=== PATIENT | female | born 1990 | race Caucasian/White ===

== ENCOUNTER → 2016-11-25 | Outpatient (CLI) | payer BC ==
[~2016-11-25] MED LIST: MEDLIST; PRED20TA PO; bactrim; yaz
== END | disposition home or self-care (01) ==
LOC: C.PAPS 14:01
PROVIDERS: ATTEND Obstetrics & Gynecology
DX: Z01.419 Encounter for gynecological examination (general) (routine) without abnormal findings (principal)

== ENCOUNTER 2023-10-30 19:43 | Inpatient (IN) ==
[2023-10-30] MEDS ORDERED: OXYTOCIN 30 UNITS/NSS 30 UNITS/500 ML BAG IV PRN ×2 (20:09→20:34)
[2023-10-30] MEDS ORDERED: LIDOCAINE 1% LOCAL 20 ML VIAL INFIL PRN (20:09)
[2023-10-30] MEDS ORDERED: LACTATED RINGER'S 1,000 ML IV PRN (20:09)
--- NOTE | 2023-10-30 20:29 | Delivery Summary ---
Vaginal Delivery Summary Date of Service October 30, 2023 Vaginal Delivery Summary Covering from [facility] physician Delivery Summary: Patient was placed in the dorsal lithotomy position. She was prepped and draped in the usual sterile fashion. Upon maternal pushing the head was delivered at raumatically followed by the anterior shoulders, posterior shoulders then the remainder of the infants body. The was immediately placed on mother's abdomen, dried and stimulated. Delayed cord clamping for 60 seconds was performed. The infants mouth and nose were bulb suctioned by nursing staff. A female was delivered at 2009, weight pending with APGARS of 8 at 1 minute and 9 at 5 minutes. The was handed off to the awaiting nursing staff. Cord blood gases were not obtained. The placenta delivered intact with three vessel cord at 2012. Placenta was sent to pathology. Thirty units of Pitocin were added to the IV fluid and allowed to run freely. Uterine massage was performed until uterus was deemed firm. Upon inspection of the perineum, second degree laceration was noted, injected with local, which was repaired with 3-0 vicryl in the usual fashion. Upon re-inspection the patient was hemostatic. Uterus again massaged and found to be firm. Needle and sponge counts were correct. Patient was stable and allowed to recover in L&D room. Infant was stable and remained in room with mother in the labor and delivery unit. EBL 300 mls
[2023-10-30] MEDS ORDERED: HYDROCORTISONE ACETATE 25 MG SUPP PR PRN (20:34)
[2023-10-30] MEDS ORDERED: DIPHTHERIA/TETANUS/PERTUSSIS Vaccine (Tdap, Age 7+yrs) 0.5mL SYR/VL IM ONE (20:34)
[2023-10-30] MEDS ORDERED: IBUPROFEN 600 MG TAB PO PRN (20:34)
[2023-10-30] MEDS ORDERED: bisacodyL 10 MG SUPP PR PRN (20:34)
[2023-10-30] MEDS ORDERED: OXYTOCIN 10 UNITS/ML 10ML VIAL IM ONE (20:34)
[2023-10-30] MEDS ORDERED: BENZOCAINE 20% SPRY 85 APPLN/85 GM CAN EXT PRN (20:34)
[2023-10-30] MEDS ORDERED: ACETAMINOPHEN 325 MG TAB PO PRN (20:34)
--- NOTE | 2023-10-30 20:37 | History & Physical Report ---
Date of Service October 30, 2023 Assessment & Plan (1) Supervision of normal intrauterine in primigravida: Plan: -On my arrival, baby and placenta had been delivered by [facility] provider programmer operator numerical control, see delivery note for details Admission and Anticipated Discharge Date Admission Date: October 30, 2023 History of Present Illness Chief Complaint: Contractions Primary Care Provider: Sherry Pugh 33 yo at 38 5/7 wga presented w/ c/o contractions. Around 430pm, was 5-15 min and rec to continue monitoring. At 630, she called triage again noting they were q2-6 for the last hour and recommended to present for eval. She notes [place] off the highway to get off the hospital, ctx drastically worsened and underwent srom on arrival Allergies Allergy/AdvReac Type Severity Reaction Status Date / Time No Known Allergies Allergy Verified 10/30/23 20:34 Home Medications Medication Instructions Recorded Confirmed Type loratadine [Claritin] PO 04/11/21 10/26/23 History cholecalciferol (vitamin D3) 25 25 mcg PO DAILY 09/03/22 10/26/23 History mcg (1,000 unit) capsule folic acid 20 mg capsule 20 mg PO DAILY 09/03/22 10/26/23 History prenat.vits,laney,dnn-kfzv-jcfjl 1 tab PO DAILY 09/03/22 10/26/23 History Patient History Medical History (Updated 03/23/23 @ 11:04 by Diandra Holbrook) Missed Surgical History (Updated 04/09/20 @ 13:41 by Shawnee Millan MD, FACOG) H/O myringoplasty History of myringotomy H/O wisdom tooth extraction S/P adenoidectomy Family History (Updated 04/09/20 @ 13:42 by Shawnee Millan MD, FACOG) Father Hypertension Grandmother (Maternal) Colorectal cancer Mother Anemia Sister Nephrolithiasis Social History (Updated 03/23/23 @ 10:09 by Diandra Holbrook) Smoking Status: Never smoker Do You Dip or Chew Tobacco: No; Hx Alcohol Use: Yes Hx Substance Use: No marital status: marital status details: Mayur (30) [phone] Current Living Situation: Spouse Current Living Situation Comment: lkives wsith spouse, 2 cats, spouse to change litter, current occupational status: employed 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
[2023-10-30 21:15] LABS: Hematocrit (blood only) 40.9 % (37.0-47.0); Hemoglobin 13.5 g/dl (12.0-16.0); Mean Corpuscular Hemoglobin 28.5 pg (25.0-34.0); Mean Corpuscular Volume 86.3 fL (80.0-100.0); Mean Platelet Volume 10.4 fL (9.4-12.4); Platelet Count 252 K/uL (130-400); RDW Coefficient of Variation 13.9 % (11.5-14.5); RDW Standard Deviation 43.4 fL (36.4-46.3); Red Blood Count 4.74 M/uL (4.20-5.40); White Blood Count 9.98 K/ul (4.8-10.8)
[2023-10-30] MEDS: DOCUSATE SODIUM 100 MG CAP PO SCH (21:16)
--- NOTE | 2023-10-31 07:16 | Obstetrical Progress Note ---
Date of Service October 31, 2023 Assessment & Plan (1) Encounter for care and examination after delivery: 33 yo PP1 from precip , doing well -Meeting all pp milestones -Rh+/rubella immune/ -f/u 6 weeks for appt, continue routine care Subjective Ambulation: ambulating normally Voiding: no voiding problems Passing Gas:: Yes Diet Tolerance:: regular diet Lochia:: Small Feeding Type:: breast feeding Pain well managed with medication Review of Systems Denies fevers, chills, n/v, HENDRICKS, CP, SOB Physical Exam Constitutional WD/WN, vitals as above no acute distress Respiratory normal respiratory effort, lungs clear to auscultation Cardiovascular RRR, no murmur, no edema Gastrointestinal (Abdomen) Percussion/Palpation: abdomen soft; abdomen nontender fundus firm at umbilicus and NT Musculoskeletal BLE symmetric, nonerythematous, nontender Results & Data Vital Signs (Past 12 Hours) Vital Signs Temp Pulse Pulse Resp BP BP Pulse Ox 10/31/23 03:12 97.7 F 62 18 107/68 98 10/30/23 23:15 98.4 F 84 20 148/98 H 98 10/30/23 22:22 81 10/30/23 22:22 152/99 H 10/30/23 22:20 18 10/30/23 22:06 75 10/30/23 22:06 140/85 10/30/23 21:51 75 10/30/23 21:51 137/81 10/30/23 21:50 18 10/30/23 21:36 76 10/30/23 21:36 142/91 H 10/30/23 21:22 77 10/30/23 21:22 136/85 10/30/23 21:20 18 10/30/23 21:06 73 10/30/23 21:06 130/71 10/30/23 21:05 18 10/30/23 20:52 77 10/30/23 20:52 147/76 H 10/30/23 20:50 18 10/30/23 20:37 78 10/30/23 20:37 146/97 H 10/30/23 20:35 18 10/30/23 20:35 97.9 F 20 10/30/23 20:22 80 10/30/23 20:22 130/65 10/30/23 20:20 18 10/30/23 20:08 77 148/81 H O2 Del Method 10/31/23 03:12 Room Air 10/30/23 23:15 Room Air 10/30/23 22:22 10/30/23 22:22 10/30/23 22:20 10/30/23 22:06 10/30/23 22:06 10/30/23 21:51 10/30/23 21:51 10/30/23 21:50 10/30/23 21:36 10/30/23 21:36 10/30/23 21:22 10/30/23 21:22 10/30/23 21:20 10/30/23 21:06 10/30/23 21:06 10/30/23 21:05 10/30/23 20:52 10/30/23 20:52 10/30/23 20:50 10/30/23 20:37 10/30/23 20:37 10/30/23 20:35 10/30/23 20:35 Room Air 10/30/23 20:22 10/30/23 20:22 10/30/23 20:20 10/30/23 20:08
[2023-10-31] MEDS: PRENATAL VITAMIN 1 TAB PO SCH (08:01)
[2023-10-31] MEDS: FERROUS SULFATE 325 MG TAB PO SCH (08:01)
[2023-10-31] MEDS: DOCUSATE SODIUM 100 MG CAP PO SCH ×2 (08:01→20:56)
[2023-10-31] MEDS ORDERED: bisacodyL 5 MG TABEC PO SCH (20:00)
[2023-11-01] MEDS: FERROUS SULFATE 325 MG TAB PO SCH (07:58)
[2023-11-01] MEDS: DOCUSATE SODIUM 100 MG CAP PO SCH (07:58)
[2023-11-01] MEDS: PRENATAL VITAMIN 1 TAB PO SCH (07:58)
--- NOTE | 2023-11-01 08:10 | Obstetrical Progress Note ---
Date of Service November 01, 2023 Assessment & Plan (1) Encounter for care and examination after delivery: 33 yo PP2 from precip , doing well -Meeting all pp milestones. Few mild bps but asymptomatic -Rh+/rubella immune/ -f/u 6 weeks for appt, will get labs for bps but if ok, still ok to go home. WIll get bp check at [facility] office as she lives a distance Subjective Ambulation: ambulating normally Voiding: no voiding problems Passing Gas:: Yes Diet Tolerance:: regular diet Lochia:: Small Feeding Type:: breast feeding Pain well managed with medication Review of Systems Denies fevers, chills, n/v, HENDRICKS, CP, SOB Physical Exam Constitutional WD/WN, vitals as above no acute distress Respiratory normal respiratory effort, lungs clear to auscultation Cardiovascular RRR, no murmur, no edema Gastrointestinal (Abdomen) Percussion/Palpation: abdomen soft; abdomen nontender fundus firm at umbilicus and NT Musculoskeletal BLE symmetric, nonerythematous, nontender Results & Data Vital Signs (Past 12 Hours) Vital Signs Temp Pulse Resp BP Pulse Ox O2 Del Method 11/01/23 07:25 98.2 F 89 18 134/86 96 Room Air 11/01/23 00:57 98.2 F 82 20 134/87 96 Room Air 10/31/23 20:15 98.4 F 90 20 125/85 96 Room Air
[2023-11-01 08:46] LABS: Hematocrit (blood only) 36.3 % (37.0-47.0); Hemoglobin 12.3 g/dl (12.0-16.0); Mean Corpuscular Hemoglobin 28.8 pg (25.0-34.0); Mean Corpuscular Hgb Conc 33.9 g/dL (32.0-36.0); Mean Platelet Volume 9.8 fL (9.4-12.4); Platelet Count 234 K/uL (130-400); RDW Coefficient of Variation 14.2 % (11.5-14.5); RDW Standard Deviation 43.7 fL (36.4-46.3); Red Blood Count 4.27 M/uL (4.20-5.40); White Blood Count 11.05 K/ul (4.8-10.8)
[2023-11-01 09:02] LABS: Albumin Level 3.3 gm/dl (3.4-5.0); BUN Creatinine Ratio 13.8 (10-20); Bilirubin,Total 0.4 mg/dl (0.2-1.0); Calcium 8.4 mg/dl (8.6-10.3); Creatinine Clr Calc Pharmacy 178.3 ml/min; Est GFR (African American) 137.1 ml/min; Est GFR (Non-African American) 118.3 ml/min; Globulin 3.3 gm/dl (2.5-4.0); Potassium 3.8 mmol/L (3.5-5.1); Total Protein 6.6 gm/dl (6.0-8.3)
== END 2023-11-01 12:00 | disposition home or self-care (01) | DRG 807 ==
LOC: OPB 19:43 → 4S1 19:45 → 4E2 22:40

== ENCOUNTER 2024-03-16 07:08 | Observation (INO) ==
--- NOTE | 2024-03-10 09:26 | Anesthesiology Consultation ---
Date of Service March 10, 2024 Assessment & Plan Chart Review Chart Review: Acceptable Risk for Surgery and Patient NOT seen in Pre Admission Testing Consults Requested none History Surgery Operation Date: 03/16/24 08:40 Proposed Procedures p Laparoscopic Cholecystectomy with Cholangiogram, Possible Open - Gaudencio Martel MD, FACS Height/Weight Height: 5 ft 5 in Weight: 122.47 kg Allergies Allergy/AdvReac Type Severity Reaction Status Date / Time No Known Allergies Allergy Verified 03/10/24 07:46 Medications Home Medications Medication Instructions Recorded Confirmed Last Taken fluoxetine 20 mg capsule 20 mg PO QAM 02/17/24 03/10/24 Unknown hydroxyzine pamoate 25 mg capsule 25 mg PO BID PRN Anxiety 02/17/24 03/10/24 Un known (Vistaril) multivitamin 1 tab PO QAM 02/17/24 03/10/24 Unknown pantoprazole 40 mg tablet,delayed 40 mg PO QPM 02/17/24 03/10/24 Unknown release cholecalciferol (vitamin D3) 125 125 mcg PO QAM 03/10/24 03/10/24 Unknown mcg (5,000 unit) tablet (Vitamin D3) drospirenone 3 mg-ethinyl 1 tab PO QAM 03/10/24 03/10/24 Unknown estradiol 0.02 mg tablet loratadine 10 mg capsule 10 mg PO QAM 03/10/24 03/10/24 Unknown Past Medical History Medical History Anxiety GERD (gastroesophageal reflux disease) History of anemia no current issues-through teenage years due to heavy menses Missed hx Past Family History Family History Father Hypertension Grandmother (Maternal) Colorectal cancer Mother Anemia Sister Nephrolithiasis Grandmother (Paternal) Colorectal cancer Diabetes Past Surgical History Surgical History H/O myringoplasty History of myringotomy H/O wisdom tooth extraction S/P adenoidectomy Social History Smoking Status: Never smoker Do You Dip or Chew Tobacco: No Hx Alcohol Use: Yes (none since having baby) Alcohol type: wine and hard liquor Hx Substance Use: No substance use type: does not use Testing Electrocardiogram Date: 03/01/24 Normal sinus rhythm with sinus arrhythmia, rate 75 bpm Normal ECG No previous ECGs available Confirmed by Edgardo Coppola ([id number]) on 03/05/2024 7:18:09 PM Chest X-Ray Date: 03/01/24 Findings: + NAD
[~2024-03-16 07:08] MED LIST changes: +ACETAMINOPHEN 1000 MG/100 ML IV IV ONE; -MEDLIST; -PRED20TA PO; -bactrim; -yaz
[2024-03-16] MEDS ORDERED: LIDOCAINE 2% 2 ML VIAL/AMP(20MG/ML) INFIL ONE (07:28)
[2024-03-16] MEDS ORDERED: ROCURONIUM BROMIDE 10 MG/ML 5 ML VIAL IV ONE (07:28)
[2024-03-16] MEDS ORDERED: DEXAMETHASONE SOD INJ 4 MG/ML VIAL ONE (07:28)
[2024-03-16] MEDS ORDERED: fentaNYL citrate PF 100 MCG/2 ML VIAL ONE ×2 (07:28→10:19)
[2024-03-16] MEDS ORDERED: PROPOFOL IV EMULSION 10 MG/ML 20 ML VIAL IV ONE (07:28)
[2024-03-16] MEDS ORDERED: MIDAZOLAM HCL 1 MG/ML 2ML VIAL ONE (07:28)
[2024-03-16] MEDS ORDERED: ONDANSETRON INJ 2 MG/ML 2 ML VIAL ONE (07:28)
[2024-03-16] MEDS: LR 15ML/HR IV SCH (08:19)
--- NOTE | 2024-03-16 08:42 | History & Physical Bridge Note ---
Date of Service March 16, 2024 History & Physical Bridge Note I have examined the patient, reviewed the History & Physical and in the interval since the performance of the History & Physical I have noted the following changes of clinical significance: no changes noted SO at bedside all question answered
[2024-03-16] MEDS ORDERED: PROMETHAZINE HCL 6.25 MG in SODIUM CHLORIDE 0.9% 50 ML IV PRN (08:56)
[2024-03-16] MEDS ORDERED: ONDANSETRON INJ 2 MG/ML 2 ML VIAL IV PRN ×2 (08:56→09:29)
[2024-03-16] MEDS ORDERED: ATROPINE SULFATE 0.1 MG/ML 10ML SYR IV PRN (08:56)
[2024-03-16] MEDS: SCOPOLAMINE 1 MG/72 HR TDSY PATCH TD ONE ×2 (08:56→09:04)
[2024-03-16] MEDS ORDERED: fentaNYL citrate PF 100 MCG/2 ML VIAL IV PRN (08:56)
[2024-03-16] MEDS ORDERED: ePHEDrine sulfate 50 MG/ML AMP IV PRN (08:56)
[2024-03-16] MEDS ORDERED: MoRPHine SULFATE 4 MG/ML 1 ML CARP\\VIAL IV PRN (09:29)
[2024-03-16] MEDS ORDERED: oxyCODONE/ACETAMINOPHEN 5mg/325mg TAB PO PRN ×2 (09:29)
[2024-03-16] MEDS: GLUCAGON FOR INJ 1 MG VIAL ONE (09:46)
[2024-03-16] MEDS ORDERED: KETOROLAC 30 MG/ML VIAL ONE (09:48)
[2024-03-16] MEDS ORDERED: SUGAMMADEX SODIUM 200 MG/2 ML VIAL IV ONE (09:48)
[2024-03-16] MEDS: IOVERSOL 50ml INSTIL PRN (10:06)
--- NOTE | 2024-03-16 10:11 | Fluoroscopy Report ---
[place] cholangiogram OR CLINICAL HISTORY: LAP JERONIMO TECHNIQUE: 5 views were obtained with the C-arm in the OR with the above procedure. Total fluoroscopy time was 4 seconds. Radiation dose was 1.54 mGy. Comparison: Comparison is made to CT abdomen pelvis 03/01/2024 FINDINGS/IMPRESSION: Intraoperative images were obtained of cholangiogram with laparoscopic cholecyst ectomy. Biliary tree is unremarkable. Please correlate with intraoperative fluoroscopy and operative report. ACT 112: Negative or not required by law. Electronically signed by: Rio Chanel M.D. 03/16/2024 10:09 AM
[2024-03-16] MEDS: LIDOCAINE 1%/EPINEPHRINE 1:100,000 20 ML VIAL ONE (10:21)
--- NOTE | 2024-03-16 10:21 | Post Operative Brief Note ---
Immediate Post Op Note v1 Date of Surgery March 16, 2024 Pre & Post Diagnosis Operation Date: 03/16/24 08:40 Pre-Op Diagnosis: Acute cholecystitis, cholelithiasis Post-Op Diagnosis: Acute cholecystitis, cholelithiasis I identified the patient and participated in the time-out.: Yes Procedure Operation Date: 03/16/24 08:40 Actual Procedures p Laparoscopic Cholecystectomy with Cholangiogram(Not Applicable) - Gauedncio Martel MD, FACS Surgeon Gaudencio Martel MD, FACS Research Aide Demario BASURTO Estimated Blood Loss 10 Findings Consistent with Post-Op Diagnosis Drains Ronnie-Kwok Drain
--- NOTE | 2024-03-16 10:42 | Operative Report ---
PG Post Operative Report Pre & Post Diagnosis Operation Date: 03/16/24 08:40 Pre-Op Diagnosis: Acute cholecystitis, cholelithiasis Post-Op Diagnosis: Acute cholecystitis, cholelithiasis Choledocholithiasis I identified the patient and participated in the time-out.: Yes Procedure Operation Date: 03/16/24 08:40 Actual Procedures p Laparoscopic Cholecystectomy with Cholangiogram(Not Applicable) - Gaudencio Martel MD, FACS The patient was brought into the operating room theater supine position general endotracheal anesthesia the abdomen was prepped Betadine solution properly draped a timeout was had patient identified we made a small incision supraumbilically sufficient enough to accommodate a Veress needle followed by 5 mm trocar once the pressure was a 10 mmHg followed by the scope point of entry specter no injury identified visualized the right upper quadrant gallbladder was could be seen adhesions to the gallbladder easily appreciated near the fundus and direct visualization placed a 5 mm epigastric and two 5 mm subcostal ports with preemptive local analgesic the right upper quadrant lateral trocar site the grasper was used to elevate the fundus gallbladder and we have mostly blunt dissection some sharp dissection we took up to significant adhesions to the gallbladder somewhat find some more more fibrinous but the gallbladder was extremely long we need to choke up on it a few times to elevated out of the subhepatic area finally we worked our way down to the neck identified a significant amount of adhesions of the duodenum down to the yrn hepatis area we then freed this all out make careful to avoid any injury to the duodenum we then more traction was placed on the gallbladder we worked our way down to the neck dissected out the cystic duct which we initially appreciate we was well aware and away from the common bile duct small clip in the cystic duct was made as a takeoff of small opening cystic duct was made a #4 urethral catheter transversing the abdominal wall was positioned in the cystic duct x-rays was taken which showed a very long corkscrew cystic duct common bile duct contrast would not go down into the duodenum there was a filling defect in the distal common bile duct this was consistent with a stone we at this point gave the patient some glucagon flushed out the system is much as possible normal saline solution we took another contrast study the common bile duct and the stone persisted at this point there was no way we could remove the stone that measured approximately 3 mm or so in size at this point we choked on the cystic duct since he stated was quite long were well aware and away from the common bile duct we tripped and clinically divided then the artery anterior and posterior branches were doubly clipped proximal once distally and divided the gallbladder was taken out in antegrade fashion using electrocautery few bleeders from the gallbladder fossa was cauterized the gallbladder was placed in an Endopouch and taken out intact through the epigastric port opening the gallbladder patient had significant amount of probably 2 to 3 mm stones similar to what we had visions i n the common bile duct the subhepatic suprahepatic area was then checked with stasis appears satisfactory at this point I elected to drain the subhepatic area with a Garfield drain which was brought in through the epigastric area taken out through the right upper quadrant lateral trocar site prior to doing that we had placed the camera in the lateral right upper quadrant trocar site to visualize her initial entry to the abdomen and no adhesion to the anterior abdominal wall was appreciated Cholangiocath was taken out to the black ezio on her right upper quadrant lateral side touches skin edges 2-0 silk placed subhepatic laying wounds were closed with 2-0 Vicryl Steri-Strips applied procedure was tolerated well by the patient estimated blood loss 10 cc Addendum Shira BASURTO was present throughout the procedure and helped the retraction exposure wound closure Addendum the patient will need to be transferred to [facility] for an ERCP since we have no ERCP facility anymore about that the [facility] Surgeon Gaudencio Martel MD, FACS Paper Goods Machine Set Up Operator Demario BASURTO Estimated Blood Loss 10 Findings Consistent with Post-Op Diagnosis Chronic cholecystitis cholelithiasis Choledocholithiasis Specimens Gallbladder and stone Drains 19 Garfield subhepatic Indications Chronic cholecystitis cholelithiasis Description of Procedure merda I attest to the content of the Intraoperative Record and any orders documented t herein. Any exceptions are noted below.
--- NOTE | 2024-03-16 10:49 | Discharge Summary ---
Date of Service March 16, 2024 Principal Diagnosis s/p laparoscopic cholecystectomy choledocholithiasis Discharge Exam awake, no distress Respiratory normal respiratory effort Gastrointestinal (Abdomen) Inspection/Auscultation: + abdominal surgical incision (steri strips in place) Percussion/Palpation: + abdomen tender (expected shanae incisional discomfort) and abdomen soft PHILLIP drain in place Discharge Data Allergies Allergy/AdvReac Type Severity Reaction Status Date / Time No Known Allergies Allergy Verified 03/16/24 07:39 Procedures Performed Operation Date: 03/16/24 08:40 Actual Procedures p Laparoscopic Cholecystectomy with Cholangiogram(Not Applicable) - Gaudencio Martel MD, FACS Ordered Studies 03/16/24 [place] cholangiogram OR Routine Hospital Course (1) S/P laparoscopic cholecystectomy: This is a 33yF who presented to the [facility] on 03/16/24 for an elective laparoscopic cholecystectomy with Dr. Martel. Intraop a routine cholangiogram was obtained that revealed filling defects in the common bile duct. The patient tolerated the procedure well and was left with a surgical drain in place. She was admitted to the hospital and kept NPO with IVF. Unfortunately, we do not offer ERCP services at this time. We connected with the transfer center who helped set-up transfer to [facility] where she will be accepted and GI to perform ERCP at their hospital. She should keep her drain until she can follow up with Dr. Martel in the office next week. The patient will be transferred when a bed becomes available. Addendum: Patient is refusing transfer to [facility], the transfer center is working on getting her transferred to [facility]. (2) Choledocholithiasis: Total Time Total Time Spent Total Time Spent (In Minutes): 15 Discharge Plan Discharge Items Patient Disposition: Transfer Acute Care Hospital Reason For Visit: S/P LAP JERONIMO Discharge Diagnosis: Laparoscopic Cholecystectomy with Cholangiogram Activity: As commented below Lifting: No more than 10 pounds Bathing Comment: you can shower tomorrow. No pools or bath for 2 weeks Exercise/Sports: Wait until after follow-up appointment Driving/Machine Use: no driving while on narcotics for pain Non-emergency contact: Surgeon Call non-emergency contact if: you have any medication questions, your pain is not controlled, you have a fever, your temperature is above 101.5, your wound has increased redness, your wound has increased drainage and your wound pain has increased Follow-up/Referrals: Gaudencio Martel MD, FACS [Surgeon] - (call office for a follow up in 1 week for drain removal ) Sherry Pugh M.D. [Primary Care Provider] - Diet: Nothing by Mouth Addtl Attending Provider Instructions: You will have small white bandages on underneath that are over your incision. You may shower with these on. They will tend to fall off on their own in a 7-10 days. you have a PHILLIP drain, please care for this as you have been shown. Keep a log of your output and bring it with you to your follow up appointment. Follow up with Dr. Martel next week Pending Studies at Discharge: Yes Studies:: surgical pathology Stand-Alone Forms: My [facility] Skilled Items Patient informed of condition?: Yes DNR: No Discharge Level of Care: Other Communicable Disease: No Discharge Prognosis: Stable Lines: Peripheral IV Urinary Catheter: No Medications and DC Order Prescriptions: New oxycodone 5 mg tablet 5 - 10 mg PO .[id number] MDD no more than 6 tabs in 24hours PRN (Reason: pain) Qty: 15 0RF Continued pantoprazole [Protonix] 40 mg tablet,delayed release (DR/EC) 40 mg PO QPM Patient Comments: before lunch fluoxetine [Prozac] 20 mg capsule 20 mg PO QAM hydroxyzine pamoate [Vistaril] 25 mg capsule 25 mg PO BID PRN (Reason: Anxiety) multivitamin Tablet 1 tab PO QAM cholecalciferol (vitamin D3) [Vitamin D3] 125 mcg (5,000 unit) Tablet 125 mcg PO QAM Claritin Liqui-Gel 10 mg Capsule 10 mg PO QAM drospirenone-ethinyl estradiol 3-0.02 mg tablet 1 tab PO QAM Rx Instructions: Take one pill everyday at the same time Discharge Orders: Discharge Order (Routine); Ordered 03/16/24 Ordered By: Heather Trinidad Admission Data Admit Date/Time: 03/16/24 10:48 Attending Provider: Gaudencio Martel Admit Provider: Gaudencio Martel Primary Care Provider: Sherry Pugh Coding Level of Care Code 02444 INP/OBS DISCH >30 MIN Diagnoses S/P laparoscopic cholecystectomy Z90.49 Choledocholithiasis K80.50
--- NOTE | 2024-03-16 11:25 | Anesthesiology Progress Note ---
Date of Service March 16, 2024 Anesthesia Post Procedure Vital Signs Vital Signs: Temp Pulse Resp BP Pulse Ox O2 Del Method O2 Flow Rate 03/16/24 11:20 36.3 C L 82 19 117/72 96 Room Air 03/16/24 11:10 88 19 124/66 97 Room Air 03/16/24 11:00 99 H 20 111/68 95 Room Air 03/16/24 10:50 85 20 139/79 98 Oxymask 5 03/16/24 10:42 36.1 C L 91 H 20 129/102 H 93 Oxymask 5 03/16/24 07:42 37.1 C 90 18 146/94 H 97 Room Air Transfer of Care Handoff Completed per policy Notes Mental Status: alert / awake / arousable Patient Amnestic to Procedure: Yes Nausea / Vomiting: adequately controlled Pain: adequately controlled Airway Patency, RR, SpO2: stable & adequate BP & HR: stable & adequate Hydration State: stable & adequate Anesthetic Complications: no major complications apparent and Pt Satisfied with anesthetic care
[2024-03-16] MEDS: LACTATED RINGER'S 1,000 ML IV SCH (12:05)
[2024-03-16] MEDS: SODIUM CHLORIDE 0.9% 1,000 ML IV SCH (13:27)
--- NOTE | 2024-03-16 13:41 | Communication Note ---
Date of Service: March 16, [address] Millan at [facility] , they are willing to accept the patient however wanted it to be known there may be a 24-48 hour wait for an open bed, if she does not arrival tomorrow at an acceptable time or if she were to arrival over the weekend her ERCP procedure is not guaranteed to be done Wednesday or over the weekend but could possibly be pushed to Wednesday. Dr. Millan wanted me to inform the patient that If her LFTs and other lab work indicated an emergent procedure then she would need to get a percutaneous drainage. I made the patient and her aware of the above, and she is now requesting that she be transferred to [place] and is "Ok" with going there. Transfer paper work signed and in chart.Updated transfer center.
[2024-03-16] MEDS: MoRPHine SULFATE 2 MG/ML CARP IV PRN (14:27)
[2024-03-16 14:31] LABS: Albumin Globulin Ratio 1.1 (0.9-2); BUN Creatinine Ratio 16.4 (10-20); Bilirubin,Total 0.7 mg/dl (0.2-1.0); Creatinine Clr Calc Pharmacy 160.4 ml/min; Est GFR (African American) 135.8 ml/min; Est GFR (Non-African American) 117.1 ml/min; Globulin 3.5 gm/dl (2.5-4.0); Potassium 4.2 mmol/L (3.5-5.1); Total Protein 7.5 gm/dl (6.0-8.3)
[2024-03-16] MEDS ORDERED: CHECK SCOPOLAMINE PATCH PLACEMENT SCH (16:00)
[2024-03-16] MEDS ORDERED: ACETAMINOPHEN 325 MG TAB PO PRN (17:08)
[2024-03-17] MEDS ORDERED: FLUoxetine HCL 20 MG CAP PO SCH (09:00)
== END 2024-03-16 19:22 | disposition short-term general hospital (02) ==
LOC: ASU 07:08 → 3E 10:48 → INTOOBSV 10:48

== ENCOUNTER 2025-09-18 19:59 | Inpatient (IN) ==
[2025-09-18] MEDS ORDERED: CALCIUM CARBONATE 500 MG CHEWABLE TAB PO PRN (20:46)
[2025-09-18] MEDS ORDERED: LIDOCAINE 1% LOCAL 20 ML VIAL INFIL PRN (20:46)
--- NOTE | 2025-09-18 20:53 | History & Physical Report ---
Date of Service September 18, 2025 Assessment & Plan (1) Elevated blood pressure affecting , antepartum: Plan: Patient is a 35yo female who presents for recommended delivery after having elevated blood pressures. Continues to have mild range blood pressures in the hospital Meets criteria for gHTN - delivery recommended at this time Admission labs pending; will add on HELLP labs and repeat p/c ratio Cvx 3/60/2; recommended pitocin 2x2; patient initially hesitant; wants to walk for an hour and then if unchanged or contractions not picking up more states will be agreeable to starting pitocin Epidural PRN AROM when able Rh positive, rubella immune, GBS negative Presentation confirmed vertex on exam Anticipate Present on Admission?: Yes (2) Encounter for induction of labor: History of Present Illness Chief Complaint: Elevated BP Primary Care Provider: Sherry Pugh Patient is a 35yo female who presents for recommended delivery after having elevated blood pressures. Notes some swelling but denies other preeclampsia symptoms. +FM, reports mild intermittent contractions; denies LOF, VB. Allergies Allergy/AdvReac Type Severity Reaction Status Date / Time No Known Allergies Allergy Verified 09/18/25 14:50 Home Medications Medication Instructions Recorded Confirmed Type loratadine 10 mg capsule (Claritin 10 mg PO QAM 03/10/24 09/18/25 History Liqui-Gel) amoxicillin 875 mg tablet 875 mg BID 09/18/25 09/18/25 History vitamins-iron fumarate 65 tab 09/18/25 History mg iron-folic acid 1 mg tablet Patient History Medical History Varicella vaccination Choledocholithiasis High risk HPV infection Low grade squamous intraepithelial lesion (LGSIL) at risk for high grade squamous intraepithelial lesion (HGSIL) on cytologic smear of cervix Allergies Acne Anxiety GERD (gastroesophageal reflux disease) History of anemia Missed Surgical History S/P ERCP Hx laparoscopic cholecystectomy (03/16/24) H/O myringoplasty History of myringotomy H/O wisdom tooth extraction S/P adenoidectomy Family History Father Hypertension Grandmother (Maternal) No problems noted. Mother Anemia Sister Nephrolithiasis Grandmother (Paternal) Colorectal cancer Diabetes Grandfather (Maternal) Stroke Denies family history of Ovarian cancer Breast cancer Social History Smoking Status: Never smoker Second Hand Exposure: No; Do You Dip or Chew Tobacco: No; Hx Alcohol Use: Yes (none since having baby) Alcohol type: wine and hard liquor Alcohol Intake Frequency: Monthly or Less Hx Substance Use: No Preferred Language: Russian Communication Ability: Effective Energy Control Officer Required: No Beliefs That Will Affect Care: None marital status: marital status details: Mayur (30) [phone] Current Living Situation: Spouse and Family Current Living Situation Comment: house with , child, cats-spouse changing litter current occupational status: employed 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 How many Children do You have: 1 Other Information That Helps Us Care for You: No Feels Safe at Home: Yes Safety Concerns: Feels Safe At This Time Diet: regular during the past year weight has: remained stable Assistive Devices: None Review of Systems All systems reviewed & are unremarkable except as noted in HPI & below Physical Exam Constitutional: WD/WN, vitals as above healthy appearing Respiratory: normal respiratory effort Musculoskeletal: Lower extremity edema bilaterally-trace Psychiatric: Orientation: alert and oriented x 3 Genitourinary: Manual OB Exam: + cervical dilation 3 cm, + cervical effacement 60% and + station -2 OB Exam Monitor Tracing: + external FHT monitor used, + external uterine monitor used and + category I Results & Data Vital Signs (Past 12 Hours) Vital Signs Temp Pulse Resp BP 09/18/25 20:26 36.6 C 87 18 146/94 H 09/18/25 20:19 87 146/94 H Coding Level of Care Code None Diagnoses Elevated blood pressure affecting , antepartum O16.9 Encounter for induction of labor Z34.90
[2025-09-18 21:35] LABS: Hematocrit (blood only) 38.1 % (37.0-47.0); Hemoglobin 13.1 g/dL (12.0-16.0); Mean Corpuscular Hemoglobin 29.2 pg (25.0-34.0); Mean Corpuscular Volume 84.9 fL (80.0-100.0); Platelet Count 245 K/uL (130-400); RDW Standard Deviation 44.4 fL (36.4-46.3); Red Blood Count 4.49 M/uL (4.20-5.40); White Blood Count 14.27 K/ul (4.8-10.8)
[2025-09-18 21:53] LABS: Alanine Aminotransferase 9.0 U/L (7-52); Albumin Globulin Ratio 0.9 (0.9-2); Albumin Level 3.4 gm/dl (3.4-5.0); Alkaline Phosphatase 133.0 U/L (34-104); Anion Gap 10.0 (3-11); Bilirubin,Total 0.4 mg/dl (0.2-1.0); Blood Urea Nitrogen 9.0 mg/dl (6-23); Calcium 9.0 mg/dl (8.6-10.3); Carbon Dioxide 19.0 mmol/L (21-32); Chloride 107.0 mmol/L (98-107); Creatinine Clr Calc Pharmacy 210.8 ml/min; Globulin 3.9 gm/dl (2.5-4.0); Glucose 78.0 mg/dl (70-99(Fasting)); Potassium 4.0 mmol/L (3.5-5.1); Sodium 136.0 mmol/L (136-145); Total Protein 7.3 gm/dl (6.0-8.3); Uric Acid 5.6 mg/dl (2.6-7.2)
[2025-09-18 22:24] LABS: Hep B Surface Ag with confirm Negative (Negative); Treponema pallidum RflxConfirm Negative (Negative)
[2025-09-18] MEDS: LACTATED RINGER'S 1,000 ML IV PRN (22:55)
[2025-09-18] MEDS: OXYTOCIN 30 UNITS/NSS 30 UNITS/500 ML BAG IV PRN (22:55)
[2025-09-19] MEDS: OXYTOCIN 30 UNITS/NSS 30 UNITS/500 ML BAG IV PRN (01:30)
[2025-09-19] MEDS ORDERED: HYDROCORTISONE ACETATE 25 MG SUPP PR PRN (01:41)
[2025-09-19] MEDS ORDERED: IBUPROFEN 600 MG TAB PO PRN (01:41)
[2025-09-19] MEDS ORDERED: BENZOCAINE 20% SPRY 85 APPLN/85 GM CAN EXT PRN (01:41)
[2025-09-19] MEDS ORDERED: DIPHTHER/TETAN/PERTUS Vaccine (Tdap, Adol/Adult) 0.5mL IM ONE (01:41)
[2025-09-19] MEDS ORDERED: OXYTOCIN 30 UNITS/NSS 30 UNITS/500 ML BAG IV PRN (01:41)
--- NOTE | 2025-09-19 01:42 | Delivery Summary ---
Vaginal Delivery Summary Date of Service September 19, 2025 Vaginal Delivery Summary Pre-delivery diagnoses: IUP at 39 weeks 4 days, gestational HTN Post-delivery diagnoses: Same Procedure: Spontaneous vaginal delivery Surgeon: Estrellita Hernandes MD Complications: none Findings: Viable female . Apgars: 8/9. Weight pending, please see nursery records Estimated QBL: 55 cc Description of delivery: The patient progressed to complete without anesthesia. She then began to push. She spontaneously vaginally delivered a viable from the cephalic presentation. The head delivered, followed without delay by anterior shoulder, posterior shoulder, then the body. No nuchal. The baby was placed on mother's abdomen and a spontaneous cry was heard. Delayed cord clamping was employed, and the cord was doubly clamped and cut. Cord blood was obtained. The cord avulsed but with the patient pushing the placenta was delivered spontaneously intact, sent to pathology. The uterus and vagina were swept of clots and debris. IV pitocin was given. The uterus became firm. The cervix, vagina, and perineum were inspected. No lacerations requiring repair were noted. Excellent hemostasis was observed. The mother and baby are recovering in stable and good condition in the room. Sponge, needle and instrument counts were correct x 2. [facility] Vaginal Delivery Charge Delivery Type Details:
[2025-09-19] MEDS: ACETAMINOPHEN 325 MG TAB PO PRN (01:52)
[2025-09-19] MEDS ORDERED: LABETALOL HCL IV 5 MG/ML 20ML IV STA (02:08)
[2025-09-19] MEDS: LABETALOL HCL IV 5 MG/ML 20ML IV ONE (02:19)
[2025-09-19] MEDS: AMOXICILLIN 875 MG TAB PO SCH (08:55)
[2025-09-19] MEDS: PRENATAL VITAMIN 1 TAB PO SCH (08:55)
[2025-09-19] MEDS: DOCUSATE SODIUM 100 MG CAP PO SCH (08:56)
[2025-09-19 10:40] VITALS: TEMP 98.1
[2025-09-19] MEDS: NIFEdipine EXTENDED REL 30 MG TABCR PO STA (10:48)
[2025-09-19 11:44] VITALS: RESP 18
[2025-09-19 23:54] VITALS: BP 117/79; PULSE 91; O2SAT 98
--- NOTE | 2025-09-20 05:52 | Obstetrical Progress Note ---
Date of Service September 20, 2025 Assessment & Plan (1) care following vaginal delivery: Plan 35 yo post- day 1 s/p Feels well today. Vital signs stable Continue post- care Encourage ambulation and Pain controlled with ibuprofen Hgb stable Discharge home today, follow up with Dr. Hernandes in 6 weeks. BP check in office in 1 week, continue once daily Procardia 30mg XL Admission and Anticipated Discharge Date Admission Date: September 18, 2025 Supervising Physician Co-Signing Physician Notes Resident Physician Supervision Note: I interviewed and examined the patient. Discussed with Dr. Grijalva and agree with findings and plan as documented in the note. Any exceptions or clarifications are listed here: [ ] Documented By: Chinyere Nogueira MD, FACOG, MSCP Subjective 35 yo post- day 1 s/p Ambulation: ambulating normally Voiding: no voiding problems Passing Gas:: Yes Passing Stool:: yes Diet Tolerance:: regular diet Lochia:: Small Feeding Type:: bottle feeding Current Pain Level: 0/10 Resting comfortably this AM in NAD. Denies HENDRICKS, CP, SOB, N/V/D, LE pain/swelling. Review of Systems Review of Systems: All systems reviewed & are unremarkable except as noted in HPI & below Physical Exam Physical Exam: General: patient resting comfortably, NAD, non-toxic in appearance, AA&O x 4, answers questions appropriately. Skin: warm, dry, intact HEENT: NC/AT, anicteric sclera, conjunctiva without injection, moist mucus membranes. Heart: +S1/S2, regular, no m/r/g Lungs: equal air entry bilaterally, no rales/rhonchi/wheezes Abd: +BS, soft, NT/ND, uterine fundus firm 1 FB below umbilicus Ext: warm, no clubbing/cyanosis or edema, Woodrow's neg. Neuro: nonfocal, patient AA&O x 4, speech intact, no facial droop, moving all extremities on command. Results & Data Vital Signs (Past 12 Hours) Vital Signs Temp Pulse Resp BP Pulse Ox O2 Del Method 09/19/25 23:49 36.7 C 91 H 18 117/79 98 Room Air 09/19/25 19:38 36.7 C 93 H 18 139/92 97 Room Air Laboratory Results OB Labs: Blood Type A Positive 04/17/25 Antibody Screen NEGATIVE 04/17/25 Hgb 11.4 g/dl (12.0-16.0) L 07/03/25 Hct 33.6 % (37.0-47.0) L 07/03/25 MCV 87.0 fL (80.0-100.0) 04/17/25 Plt Count 249 K/uL (130-400) 04/17/25 VZV IgG Antibody 164.00 INDEX 12/02/18 Rubella IgG Antibody Immune (Immune) 04/17/25 Treponema pallidum Ab Negative (Negative) 07/03/25 Hep Bs Antigen Negative (Negative) 04/17/25 Hepatitis C Antibody Negative (Negative) 04/17/25 HIV 1&2 Ab/P24 Ag 4thGn Negative (Negative) 04/17/25 Glucose 1 Hr 50 gm 89 mg/dl (70-130) 07/03/25 OB Optional Labs: Chlamydia trachomatis RNA Not Detected (NotDetected) 04/06/23 Neisseria gonorrhoeae RNA Not Detected (NotDetected) 04/06/23 Labs Reviewed: declines all aneuploidy screens smp declines msafp smp Resident Activity Tracking Resident Involvement: Resident Care Provided Care Provided: OB Delivery
[2025-09-20 07:55] LABS: Hematocrit (blood only) 36.5 % (37.0-47.0); Hemoglobin 12.4 g/dL (12.0-16.0); Mean Corpuscular Hemoglobin 29.4 pg (25.0-34.0); Mean Corpuscular Volume 86.5 fL (80.0-100.0); Platelet Count 236 K/uL (130-400); RDW Standard Deviation 47.4 fL (36.4-46.3); Red Blood Count 4.22 M/uL (4.20-5.40); White Blood Count 11.91 K/ul (4.8-10.8)
[2025-09-20] MEDS: NIFEdipine EXTENDED REL 30 MG TABCR PO SCH (08:42)
== END 2025-09-20 11:50 | disposition home or self-care (01) | DRG 807 ==
LOC: OPB 19:59 → 4S1 20:02 → 4E2 09-19 03:55